=== PATIENT | female | born 2000 | race Caucasian/White ===

== ENCOUNTER 2021-07-15 11:12 | Outpatient (CLI) | payer OTHER ==
[2021-07-15 18:17] LABS: BASOPHILS # (AUTO) 0.1 10^3/uL (0.0-0.1); BASOPHILS % (AUTO) 0.4 %; EOSINOPHILS # (AUTO) 0.1 10^3/uL (0.0-0.7); EOSINOPHILS % (AUTO) 0.9 %; HCT - HEMATOCRIT 34.8 % (37.0-47.0); HGB - HEMOGLOBIN 11.5 g/dL (12.0-16.0); LYMPHOCYTES % (AUTO) 16.9 %; MEAN CORPUSCULAR HEMOGLOBIN 30.9 pg (27.0-31.0); MEAN CORPUSCULAR VOLUME 93.5 fL (81.0-99.0); MEAN PLATELET VOLUME 9.6 fL (7.9-10.8); MONOCYTES # (AUTO) 0.6 10^3/uL (0.0-1.0); MONOCYTES % (AUTO) 5.3 %; NEUTROPHILS % (AUTO) 75.4 %; PLT - PLATELET COUNT 301 10^3/uL (130-450); RED BLOOD COUNT 3.72 10^6/uL (4.20-5.40); RED CELL DISTRIBUTION WIDTH 12.4 % (12.0-15.0)
== END 2021-07-15 11:13 | disposition home or self-care (01) ==
LOC: LAB.N 11:12
PROVIDERS: ATTEND Nurse Practitioner Obstetrics & Gynecology
DX: Z36.9 Encounter for antenatal screening, unspecified (principal)
CPT/HCPCS: 36415; 82950; 85025

== ENCOUNTER 2021-10-01 12:13 | Outpatient (CLI) | payer OTHER ==
[2021-10-01 12:35] LABS: BASOPHILS # (AUTO) 0.1 10^3/uL (0.0-0.1); BASOPHILS % (AUTO) 0.6 %; EOSINOPHILS # (AUTO) 0.2 10^3/uL (0.0-0.7); EOSINOPHILS % (AUTO) 1.3 %; HCT - HEMATOCRIT 33.3 % (37.0-47.0); HGB - HEMOGLOBIN 11.4 g/dL (12.0-16.0); LYMPHOCYTES % (AUTO) 16.7 %; MEAN CORPUSCULAR HEMOGLOBIN 30.4 pg (27.0-31.0); MEAN CORPUSCULAR HGB CONC 34.2 g/dL (32.0-36.0); MEAN CORPUSCULAR VOLUME 88.8 fL (81.0-99.0); MEAN PLATELET VOLUME 9.1 fL (7.9-10.8); MONOCYTES # (AUTO) 0.9 10^3/uL (0.0-1.0); MONOCYTES % (AUTO) 7.2 %; NEUTROPHILS # (AUTO) 8.6 10^3/uL (1.5-6.6); PLT - PLATELET COUNT 253 10^3/uL (130-450); RED BLOOD COUNT 3.75 10^6/uL (4.20-5.40); RED CELL DISTRIBUTION WIDTH 13.5 % (12.0-15.0)
[2021-10-01 12:47] LABS: ALBUMIN/GLOBULIN RATIO 0.8 (1.0-2.2); BILIRUBIN,TOTAL 0.7 mg/dL (0.2-1.0); CALCIUM 9.1 mg/dL (8.5-10.3); CREATININE 0.7 mg/dL (0.4-1.0); POTASSIUM 4.2 mmol/L (3.5-5.0); TOTAL PROTEIN 6.6 g/dL (6.7-8.2)
[2021-10-02 11:09] LABS: CREATININE,URINE 100.4 mg/dL; PROTEIN/CREATININE RATIO,URINE 0.2 (<=0.2)
== END 2021-10-01 12:14 | disposition home or self-care (01) ==
LOC: LAB 12:13
PROVIDERS: ATTEND Nurse Practitioner Obstetrics & Gynecology
DX: R03.0 Elevated blood-pressure reading, without diagnosis of hypertension (principal)
CPT/HCPCS: 36415; 80053; 82043; 82570; 84156; 85025

== ENCOUNTER 2021-10-04 18:23 | Inpatient (IN) | payer OTHER ==
--- NOTE | 2021-10-04 18:27 | HISTORY & PHYSICAL EXAMINATION ---
Admit History - Visit Reason Visit Reason: Other - : 2 Parity: 0 Premature: 0 Ectopic: 0 : 1 Care: [facility] Risk/History: positive: None Complications This : positive: induced HTN Smoking Status: Never smoker - Mother's Labs Mother's Blood Type: positive: A Mother's RH: positive: Positive GBS: positive: Group B Strep Positive Rubella Status: positive: Immune Review of Systems - Constitutional Constitutional: denies: Fatigue, Fever, Chills, Malaise - Eyes Eyes: denies: Blurred vision, Spots in vision, Dipolpia - Cardiovascular Cariovascular: denies: Irregular heart rate, Palpitations, Chest pain, Edema - Respiratory Respiratory: denies: Cough, Wheezing, SOB at rest - Gastrointestinal Gastrointestinal: denies: Constipation, Diarrhea, Nausea, Vomiting - Genitourinary Genitourinary: denies: Dysuria - Integumentary Integumentary: denies: Rash, Pruritis - Neurological Neurological: denies: Headache Physical - Abdominal Exam Contraction Frequency (min/apart): none Uterine Resting Tone: positive: Soft - Monitoring Heart Rate Baseline: 140 Strip Review: positive: Category I - Presentation Presentation: positive: Vertex - Vaginal Exam Membranes: positive: Membranes intact Dilation (in cm): 1 Effacement (%): 50 Station: positive: -3 Cervical Position: positive: Posterior - Speculum Exam Speculum Exam Performed: positive: No Plan for Labor - Plan For Labor I expect patient to be DC'd or transferred within 96 hours.: Yes Plan for Labor: Elizabeth is a 21yo @ 39.4wks gestation by LMP c/w 7.6wk U/S who presents today as directed from her routine office visit for medical induction of labor secondary to her new diagnosis of gestational hypertension. She denies headaches, visual disturbances, RUQ or epigastric pain. She reports +FM and denies vaginal bleeding, leaking or contractions. Upon arrival an SVE was deferred secondary to her recent SVE 1 hour ago which was /-3, posterior and vertex with intact membranes. She had a Mares balloon inserted for cervical ripening at approximately 1730 this evening and it is currently still in place. She has been a patient of [facility] through the duration of her which has remained uncomplicated with the exception of her new diagnosis of gestational hypertension. She is noted to be GBS positive but despite recommendations for treatment she has chosen to decline antibiotics for GBS prophylaxis. She is supported by her Goran. Dating criteria: LMP 12/31/2020 Initial U/S @ 7.6wks gestation c/w LMP dating Serial exams - agree OB Hx: G1: SAB-uncomplicated G2: Current Medications: PNV Allergies: NKDA, gluten intolerance PMHx: Infertility. PCOS (used proverb to stimulate menses, letrozole to conceive) Surgical Hx: Hemangioma removal R eyelid <1yo; [place] teeth removal 2017 Social Hx: Never smoker. No ETOH or IVDA. Goran is [employer] [place]. She is currently not employed. Family Hx: No significant course: A positive, antibody negative Rubella immune; VZV immune Genetic screening - declines Influenza - declined Tdap- declined COVID vaccine - declined FAS WNL. Anterior placenta, no previa. Size c/w dating. 3VC. Glucola - 95 GBS POSITIVE - declines treatment 10/01/2021 CMP WNL; Urine protein creatinine ratio WNL Physical Exam: Normocephalic, atraumatic Heart RRR w/o M/G/R Lungs CTAB Abdomen gravid, soft, contender EFW 3600g SVE 1/50/-3, posterior. Vertex with intact membranes FHR baseline 140s, moderate variability, + accels, no decals No contractions appreciated via tocometry Bilateral LEs trace edema Mood is good. Assessment: 21yo @ 39.4wks gestation by LMP c/w 7.6wk U/S Gestational hypertension GBS POSITIVE - declines treatment despite recommendations and aware/accepting of associated risks to FHR Category I Plan: Admit for medical induction of labor. Initiate misoprostol 50mcg PO q 4 hours for cervical ripening Continuous monitoring Encouraged ambulation and position changes Jacuzzi PRN. Nitrous oxide PRN. Epidural per maternal request. Anticipate .
[2021-10-04] MEDS ORDERED: SODIUM CHLORIDE FLUSH 0.9% 10 ML SYRINGE IVP PRN (18:28)
[2021-10-04] MEDS ORDERED: TRANEXAMIC ACID IN NACL 1,000 MG/100 ML BAG IV PRN (18:28)
[2021-10-04] MEDS ORDERED: lidocaine 1% 20 ML MDV ID PRN (18:28)
[2021-10-04] MEDS ORDERED: OXYTOCIN 10 UNIT/ML VIAL IM PRN (18:28)
[2021-10-04] MEDS ORDERED: AMPICILLIN 2 GM in SODIUM CHLORIDE 0.9% MINIBAG 100 ML IV ONE (18:28)
[2021-10-04] MEDS ORDERED: ONDANSETRON 4 MG/2 ML VIAL IVP PRN (18:28)
[2021-10-04] MEDS ORDERED: CARBOPROST TROMETHAMINE 250 MCG/ML AMP IM PRN (18:28)
[2021-10-04] MEDS ORDERED: METHYLERGONOVINE 0.2 MG/ML VIAL IM PRN (18:28)
[2021-10-04 19:06] LABS: BASOPHILS # (AUTO) 0.1 10^3/uL (0.0-0.1); BASOPHILS % (AUTO) 0.4 %; EOSINOPHILS # (AUTO) 0.2 10^3/uL (0.0-0.7); EOSINOPHILS % (AUTO) 1.2 %; HCT - HEMATOCRIT 36.1 % (37.0-47.0); HGB - HEMOGLOBIN 12.1 g/dL (12.0-16.0); LYMPHOCYTES # (AUTO) 2.4 10^3/uL (1.5-3.5); LYMPHOCYTES % (AUTO) 16.5 %; MEAN CORPUSCULAR HEMOGLOBIN 29.3 pg (27.0-31.0); MEAN CORPUSCULAR HGB CONC 33.5 g/dL (32.0-36.0); MEAN CORPUSCULAR VOLUME 87.4 fL (81.0-99.0); MEAN PLATELET VOLUME 9.4 fL (7.9-10.8); MONOCYTES % (AUTO) 6.9 %; NEUTROPHILS # (AUTO) 10.7 10^3/uL (1.5-6.6); NEUTROPHILS % (AUTO) 73.4 %; PLT - PLATELET COUNT 298 10^3/uL (130-450); RED BLOOD COUNT 4.13 10^6/uL (4.20-5.40); RED CELL DISTRIBUTION WIDTH 13.4 % (12.0-15.0); WHITE BLOOD COUNT 14.6 x10^3/uL (4.8-10.8)
[2021-10-04 19:20] LABS: ALBUMIN 3.3 g/dL (3.2-5.5); ALBUMIN/GLOBULIN RATIO 0.8 (1.0-2.2); BILIRUBIN,TOTAL 0.7 mg/dL (0.2-1.0); CALCIUM 9.8 mg/dL (8.5-10.3); CREATININE 0.7 mg/dL (0.4-1.0); POTASSIUM 4.1 mmol/L (3.5-5.0); TOTAL PROTEIN 7.2 g/dL (6.7-8.2)
[2021-10-04] MEDS ORDERED: NIFEdipine 10 MG CAPSULE PO PRN (20:39)
[2021-10-04] MEDS ORDERED: LABETALOL 20 MG/4 ML SYRINGE IVP PRN ×3 (20:39)
[2021-10-04] MEDS ORDERED: hydrALAZINE INJ 20 MG/ML VIAL IVP PRN ×2 (20:39)
[2021-10-04] MEDS: LACTATED RINGERS 1,000 ML IV SCH (20:50)
[2021-10-04 21:47] LABS: CREATININE,URINE 42.4 mg/dL; PROTEIN/CREATININE RATIO,URINE 0.2 (<=0.2)
[2021-10-04] MEDS: miSOPROStoL 100 MCG TABLET BC SCH (21:47)
[2021-10-04] MEDS: ZOLPIDEM 5 MG TABLET PO PRN (22:56)
[2021-10-04] MEDS: AMPICILLIN 1 GM in SODIUM CHLORIDE 0.9% MINIBAG 100 ML IV SCH (23:00)
[2021-10-05] MEDS ORDERED: SODIUM CHLORIDE FLUSH 0.9% 10 ML SYRINGE IVP SCH (01:00)
[2021-10-05] MEDS ORDERED: ZOLPIDEM 5 MG TABLET PO PRN (01:07)
[2021-10-05] MEDS: ZOLPIDEM 5 MG TABLET PO PRN (01:15)
[2021-10-05] MEDS: miSOPROStoL 100 MCG TABLET BC SCH ×6 (01:55→20:23)
[2021-10-05] MEDS: AMPICILLIN 1 GM in SODIUM CHLORIDE 0.9% MINIBAG 100 ML IV SCH ×4 (03:29→20:23)
[2021-10-05] MEDS: LACTATED RINGERS 1,000 ML IV SCH ×3 (06:12→20:09)
--- NOTE | 2021-10-05 10:07 | PROVIDER PROGRESS NOTE ---
Labor Progress Note - Uterine Monitoring Uterine Monitoring Mode: positive: External toco Contraction Frequency (min/apart): 2-3 Contraction Intensity: positive: Moderate Uterine Resting Tone: positive: Soft - Monitoring Monitor Mode: positive: External ultrasound Heart Rate Baseline: 140 Heart Rate Variability: positive: Moderate (6-25 bmp) Accelerations: positive: Present, 15x15 Decelerations: positive: None Strip Review: positive: Category I - Vaginal Exam Dilation (in cm): 4 Effacement (%): 90 Station: -1 Cervical Position: Midposition - Labor Progress Note Labor Progress Note/Additional Text: S: Pt bouncing on the labor ball at the bedside and breathing through contractio ns. She states they are tolerable at this time but she has noted an increase in intensity throughout the night. She feels like she is in control of her breathing at this time. She reports feeling tired from lack of sleep despite 10mg ambien but overall denies concerns. She denies STRATTON, visual disturbances, RUQ or epigastric pain. She is supported by her mom and her at the bedside. O: FHR baseline 140s, moderate variability, + accels, no decels Contractions palpate moderate every 2-3 minutes with soft resting tone SVE 4/90/-1, midposition, soft. Vertex Intact membranes BP remains mildly elevated (140s/80s) Mares cervical ripening balloon spontaneously expelled at 0400 this morning. A: 21yo @ 39.5wks gestation Gestational hypertension GBS positive FHR Category I P: Continuous monitoring Encouraged ambulation and position changes Jacuzzi PRN. Nitrous oxide PRN. Epidural per maternal request. Consider AROM with next SVE if unchanged. Continue expectant management at this time. Anticipate . Pt verbalized understanding and agrees to above plan. She denies further questions or concerns at this time.
[2021-10-05] MEDS ORDERED: ROPIVACAINE 0.2% 200 MG/100 ML BAG EP ONE (12:15)
[2021-10-05] MEDS ORDERED: diphenhydrAMINE INJ 50 MG/ML VIAL IVP PRN (12:48)
[2021-10-05] MEDS ORDERED: METOCLOPRAMIDE 10 MG/2 ML VIAL IVP PRN (12:48)
[2021-10-05] MEDS ORDERED: NALBUPHINE 10 MG/ML AMP IVP PRN (12:48)
[2021-10-05] MEDS ORDERED: NALOXONE 0.4 MG/ML VIAL IVP PRN (12:48)
[2021-10-05] MEDS ORDERED: ONDANSETRON 4 MG/2 ML VIAL IVP PRN (12:48)
[2021-10-05] MEDS ORDERED: ROPIVACAINE 0.2% 200 MG/100 ML BAG EP PRN (12:48)
[2021-10-05] MEDS ORDERED: ePHEDrine 50 MG/ML VIAL IVP PRN (12:48)
--- NOTE | 2021-10-05 12:52 | ANESTHESIA ---
Pre-Anesthesia VS, & Labs - Diagnosis labor induction - Procedure labor epidural Vital Signs: Temp Pulse Resp BP Pulse Ox 36.9 C 82 18 132/82 H 100 10/05/21 04:00 10/05/21 07:00 10/05/21 04:00 10/05/21 07:00 10/05/21 07:00 Height: 5 ft 6 in Weight (kg): 94.801 kg Body Mass Index: 33.7 BMI Classification: Obese - NPO >8 hours - Is Patient ?: Yes - Lab Results Current Lab Results: Laboratory Tests 10/04/21 18:50: Blood Type A POSITIVE, Antibody Screen NEGATIVE 10/04/21 18:50: Sodium 136, Potassium 4.1, Chloride 103, Carbon Dioxide 20 L, Anion Gap 13.0, BUN 7, Creatinine 0.7, Estimated GFR (MDRD) 104, Glucose 96, Calcium 9.8, Total Bilirubin 0.7, AST 18, ALT 12, Alkaline Phosphatase 150 H, Total Protein 7.2, Albumin 3.3, Globulin 3.9, Albumin/Globulin Ratio 0.8 L 10/04/21 18:50: WBC 14.6 H, RBC 4.13 L, Hgb 12.1, Hct 36.1 L, MCV 87.4, MCH 29.3, MCHC 33.5, RDW 13.4, Plt Count 298, MPV 9.4, Neut # (Auto) 10.7 H, Lymph # (Auto) 2.4, [place] # (Auto) 1.0, Eos # (Auto) 0.2, Baso # (Auto) 0.1, Absolute Nucleated RBC 0.00, Nucleated RBC % 0.0 Fish Bones: 10/04/21 18:50 10/04/21 18:50 Home Medications and Allergies Home Medications: Ambulatory Orders Vit No.180/Iron/Folic [ Plus Tablet] 1 each PO DAILY 10/04/21 Active Medications Carboprost Tromethamine (Carboprost Tromethamine 250 Mcg/Ml Amp) 250 mcg IM Q15M PRN PRN Reason: Step 4: Hemorrhage protocol Stop: 10/09/21 18:28 Hydralazine HCl (Hydralazine Inj 20 Mg/Ml Vial) 10 mg IVP .ONCE PRN PRN Reason: SBP> or= 160 OR DBP> or= 110 Hydralazine HCl (Hydralazine Inj 20 Mg/Ml Vial) 5 - 10 mg IVP Q20M PRN; Protocol PRN Reason: SBP> or= 160 OR DBP> or= 110 Oxytocin/Sodium Chloride (Pitocin/Sodium Chloride) 500 mls @ 999 mls/hr IV PRN PRN; Protocol PRN Reason: POST- HEMORR PREVENTION Stop: 10/09/21 18:28 Tranexamic Acid (Tranexamic 1,000 Mg/100ml-Nacl) 1,000 mg in 100 mls @ 600 mls/hr IV .ONCE PRN PRN Reason: EBL >1200mL and within 3hr Stop: 10/09/21 18:28 Ampicillin Sodium 1 gm/ Sodium (Chloride) 100 mls @ 200 mls/hr IV Q4H SUSAN Last Admin: 10/05/21 11:54 Dose: Not Given Lactated Ringer's (Lr) 1,000 mls @ 100 mls/hr IV .Q10H SUSAN Last Infusion: 10/05/21 11:50 Dose: 125 mls/hr Labetalol HCl (Labetalol 20 Mg/4 Ml Syringe) 20 mg IVP .ONCE PRN PRN Reason: SBP> or= 160 OR DBP> or= 110 Labetalol HCl (Labetalol 20 Mg/4 Ml Syringe) 20 - 80 mg IVP Q10M PRN; Protocol PRN Reason: SBP> or= 160 OR DBP> or= 110 Labetalol HCl (Labetalol 20 Mg/4 Ml Syringe) 20 - 40 mg IVP Q10M PRN; Protocol PRN Reason: SBP> or= 160 OR DBP> or= 110 Lidocaine HCl (Lidocaine 1% 20 Ml Mdv) 20 ml ID .ONCE PRN PRN Reason: PERINEAL REPAIR Stop: 10/09/21 18:28 Methylergonovine Maleate (Methylergonovine 0.2 Mg/Ml Vial) 0.2 mg IM .ONCE PRN PRN Reason: Step 2: Hemorrhage protocol Stop: 10/09/21 18:28 Misoprostol (Misoprostol 100 Mcg Tablet) 50 mcg BC Q4H SUSAN Last Admin: 10/05/21 08:12 Dose: Not Given Nifedipine (Nifedipine 10 Mg Capsule) 10 - 20 mg PO Q20M PRN; Protocol PRN Reason: SBP> or= 160 OR DBP> or= 110 Ondansetron HCl (Ondansetron 4 Mg/2 Ml Vial) 4 mg IVP Q4HR PRN PRN Reason: Nausea / Vomiting Oxytocin (Oxytocin 10 Unit/Ml Vial) 10 unit IM .ONCE PRN PRN Reason: Step one: If no IV access Stop: 10/09/21 18:28 Sodium Chloride (Sodium Chloride Flush 0.9% 10 Ml Syringe) 10 ml IVP 010 0,0900,1700 SUSAN Last Admin: 10/04/21 19:30 Dose: 10 ml Sodium Chloride (Sodium Chloride Flush 0.9% 10 Ml Syringe) 10 ml IVP PRN PRN PRN Reason: NEEDED PER PROVIDER ORDERS Last Admin: 10/04/21 21:26 Dose: 10 ml Zolpidem Tartrate (Zolpidem 5 Mg Tablet) 5 mg PO QPM PRN PRN Reason: Insomnia Last Admin: 10/05/21 01:15 Dose: 5 mg Zolpidem Tartrate (Zolpidem 5 Mg Tablet) 5 mg PO QPM PRN PRN Reason: Insomnia Vit No.180/Iron/Folic [ Plus Tablet] 1 each PO DAILY 10/04/21 Allergies/Adverse Reactions: Allergies Allergy/AdvReac Type Severity Reaction Status Date / Time No Known Drug Allergies Allergy Verified 10/04/21 20:23 Anes History & Medical History - Anesthetic History Anesthesia Complications: reports: No previous complications - Medical History Cardiovascular: reports: None Pulmonary: reports: None Smoking Status: Never smoker History of Cancer?: No - Obstetrical History : 2 Parity: 0 Events: reports: None Complications: reports: induced HTN Exam General: Alert, Oriented x3, Cooperative, Mild distress Dental: WNL Mouth Opening: Greater than 4 Fingerbreadths Neck Mobility: Normal Mallampati classification: II Thyromental Distance: greater than 6 cm Plan Anesthesia Type: Epidural Consent for Procedure(s) Verified and Reviewed: Yes Code Status: Attempt Resuscitation ASA classification: 2-Mild systemic disease Is this case an emergency?: No
--- NOTE | 2021-10-05 13:32 | PROVIDER PROGRESS NOTE ---
Labor Progress Note - Uterine Monitoring Uterine Monitoring Mode: positive: External toco Contraction Frequency (min/apart): 2-3 Contraction Intensity: positive: Moderate to strong Uterine Resting Tone: positive: Soft - Monitoring Monitor Mode: positive: External ultrasound Heart Rate Baseline: 135 Heart Rate Variability: positive: Moderate (6-25 bmp) Accelerations: positive: Present, 15x15 Decelerations: positive: None Strip Review: positive: Category I - Vaginal Exam Dilation (in cm): 6 Effacement (%): 100 Station: 1 Cervical Position: Anterior - Labor Progress Note Labor Progress Note/Additional Text: S: Pt comfortable right side lying with epidural. She is feeling good and hoping to be able to get a little bit of sleep prior to baby's arrival. She is coping well at this time and both her and her mother are supportive at the bedside. She denies STRATTON, visual disturbances, RUQ or epigastric pain. O: FHR baseline 135, moderate variability, + accels, no decels Contractions palpate moderate to strong every 2-3 minutes with soft resting tone SVE 6/100/+1, anterior. Vertex. AROM moderate amount of clear fluid A: 21yo @ 39.5wks gestation Gestational hypertension GBS positive - continues to decline treatment FHR Category I P: Continuous monitoring. Maintain epidural for pain management Encouraged rotation in bed with peanut ball while also promoting rest. Anticipate .
[2021-10-05] MEDS ORDERED: fentaNYL 100 MCG/2 ML VIAL ONE (15:08)
[2021-10-05] MEDS ORDERED: LIDOCAINE-PF 2% 10 ML AMP SUBQ ONE (15:08)
[2021-10-05] MEDS ORDERED: HYDROCORTISONE 1% CREAM 28 GM TUBE PR PRN (19:00)
[2021-10-05] MEDS ORDERED: WITCH HAZEL/GLYCERIN 1 PAD TOP PRN (19:00)
--- NOTE | 2021-10-05 19:17 | DELIVERY NOTE ---
Delivery Note - Labor Labor: positive: Augmented by ARM - Infant Delivery Method Delivery Method: positive: Spontaneous vaginal delivery - Cervical Ripening Method Cervical Ripening Method: positive: Balloon device, Misoprostil - Presentation Presentation: positive: Vertex, DALE - left occiput anterior - Nuchal Cord Nuchal Cord: positive: None - Amniotic Fluid Description Amniotic Fluid Description: positive: Clear - Episiotomy Type Episiotomy Type: positive: None - Laceration Laceration: positive: 1st degree, Labial, Vaginal - Suture Suture Type: positive: Vicryl Suture Size: positive: 2-0, 4-0 - Delivery Outcome Delivery Outcome: positive: Livebirth - [place]: positive: Placed in direct skin contact with mother, Stimulated, Warmed, [place] used [place] sex: positive: Female - Cord Cord: positive: 3 vessels - Placenta Placenta: positive: Intact, Spontaneous - Estimated Blood Loss Estimated Blood Loss (in cc): 500 - Post Delivery Events Post Delivery Events: positive: No post delivery events - Delivery Comments (Free Text/Narrative) Delivery Comments (Free Text/Narrative): Labor: This 21yo @ 39.5wks gestation presented on 10/04/2021 for medical induction of labor secondary to gestational hypertension. Cervix was 1/50/-3, posterior and vertex. FHR pattern demonstrated Category I pattern throughout labor. She had a layne cervical ripening balloon placed and it was spontaneously expelled at 0400 on 10/05/2021. She received 2 doses of 50mcg BC misoprostol for cervical ripening. Epidural placed upon maternal request. AROM occurred at 1321 and was noted to be a moderate amount of clear fluid. Pt progressed to c/c/+1 at 1636 with onset of active pushing at 1658. : Normal of viable female on 10/05/2021 @ 1800. No nuchal. The was placed on maternal abdomen, stimulated, dried, and placed skin to skin. Apgars were 8/9 at 1 and 5 minutes respectively. Pt declined active management of the third stage. The umbilical cord was allowed to stop pulsating and which time it was doubly clamped by CNM and cut by FOB. Cord blood was obtained. 3VC. Fundal massage and gentle cord traction applied. Placenta delivered spontaneously and intact at 1810. EBL 500mL. Fourth stage: Uterine fundus firm and there is no excessive bleeding. The perineum, vagina, and cervix were inspected and noted to have a 1st degree vaginal laceration which was repaired using a 2-[address]-1 needle and she was also noted to have a minor 1st degree right labial laceration which was repaired using a 4-0 vicryl on an SH needle, both repairs were performed in standard fashion and under sterile conditions. Vaginal examination following repair was performed. Tissues well approximated. initiated. Family bonding well. Both mother and baby were left in stable conditions.
[2021-10-05] MEDS: OXYTOCIN/SODIUM CHLORIDE 500 ML IV PRN ×2 (19:50→21:07)
[2021-10-05] MEDS: ACETAMINOPHEN 500 MG TABLET PO SCH (20:08)
[2021-10-05] MEDS: IBUPROFEN 800 MG TABLET PO SCH (20:08)
[2021-10-05] MEDS ORDERED: HYDROcod/ACETAM 5/325 MG TABLET PO PRN (20:50)
[2021-10-05] MEDS ORDERED: OXYTOCIN 10 UNIT/ML VIAL IVP ONE (20:51)
[2021-10-05] MEDS: DOCUSATE SODIUM 100 MG CAPSULE PO SCH (21:07)
[2021-10-06] MEDS: IBUPROFEN 800 MG TABLET PO SCH ×2 (01:36→09:07)
[2021-10-06] MEDS: ACETAMINOPHEN 500 MG TABLET PO SCH ×2 (03:11→11:51)
[2021-10-06] MEDS: DOCUSATE SODIUM 100 MG CAPSULE PO SCH (09:07)
--- NOTE | 2021-10-06 09:45 | Discharge Plan ---
Discharge Plan Problem Reviewed?: Yes Disposition: Home, Self Care Condition: Good Diet: Regular Activity Restrictions: No Restrictions Shower Restrictions: No Driving Restrictions: No Weight Bearing: Full Weight No Smoking: If you smoke, Please STOP! Call for help. Follow-up with: Katheryn Irwin CNM, ARNP [Provider Admit Priv/Credential] -
--- NOTE | 2021-10-06 10:04 | DISCHARGE SUMMARY ---
Discharge Summary Condition at Discharge: Good Discharge Disposition: 01 Home, Self Care - HOSPITAL COURSE Hospital Course: Date of Admission: 10/04/2021 Date of Discharge: 10/06/2021 Diagnosis on Admission: 1. 21yo @ 39.4wks gestation 2. Gestational hypertension 3. GBS positive 4. FHR Category I Diagnosis on Discharge: 1. 21yo PPD#1 s/p TSVD viable female 2. 1st degree perineal laceration - intact 3. Gestational hypertension 4. Normal recovery Brief history: [facility] who presented on 10/04/2021 for medical induction of labor secondary to gestational hypertension. Her blood pressures were noted to be mildly elevated and remained only mildly elevated with no symptoms of preeclamspia and normal labs through the duration of her labor and course. Cervix was 1/50/-2, posterior and vertex with intact membranes. She presented with a layne cervical ripening balloon with 60cc intrauterine balloon upon arrival as it was placed in the office prior to her arrival. She was noted to contract every 2-3 minutes with soft resting tone. FHR pattern demonstrated a category I pattern throughout labor. She received 2 doses of 50mc BC misoprostol and cervical ripening balloon was spontaneously expelled. Epidural placed per maternal request. AROM occurred for labor augmentation and was noted to be a moderate amount of clear fluid. SHe was noted to be GBS positive and declined antibiotics for prophylaxis despite recommendations and she was counseled extensively on associated risk of GBS infection to her including . She progressed to spontaneously deliver a viable female infant on 10/05/2021 @ 1800. Apgars were 8/9 at 1 and 5 minutes respectively. EBL 500mL initially with an additional 104mL and was accompanied by lightheadedness. She had initially declined active management of the third stage. Following the increased bleeding she agreed to pitocin IV which controlled her bleeding. She has been doing well in her course. She is ambulating and tolerating a regular diet. She is urinating without difficulty and her lochia is normal. Her pain is well controlled with oral medications. She is without difficulty and bonding well with her baby. She will be discharged home today on day #1 with instructions to continue taking her vitamin while and to continue taking ibuprofen and tylenol over t he counter as needed for pain management. She intends to follow up with myself at [facility] in 1 week for routine visit or sooner if needed. She has been given precautions to call if she has any worsening fevers, chills, abdominal pain, increased vaginal bleeding or foul smelling vaginal lochia. Physical Exam: Normocephalic, atraumatic. Heart RRR w/o M/G/R, lungs CTAB, abdomen soft and nontender with fundus firm at U, perineum intact, light lochia rubra, bilateral LE's trace edema. Mood is good. - ALLERGIES Allergies/Adverse Reactions: Allergies Allergy/AdvReac Type Severity Reaction Status Date / Time No Known Drug Allergies Allergy Verified 10/04/21 20:23 - MEDICATIONS Home Medications: Ambulatory Orders Medication Instructions Recorded Confirmed Vit No.180/Iron/Folic 1 each PO DAILY 10/04/21 10/04/21 [ Plus Tablet] - LABS Result Diagrams: 10/04/21 18:50 10/04/21 18:50
[2021-10-06 12:56] VITALS: BP 135/81
--- NOTE | 2021-10-06 12:57 | Labor Flowsheet ---
Labor Flowsheet Datetime Report Generated by CPN: 10/06/2021 12:57 Datetime: 10/06/2021 12:38 VITAL SIGNS NBP Sys/Natalie/Mean (mmHg): 135 : 81 : 93 Pulse: 115 Datetime: 10/06/2021 03:15 SpO2 (%): 100 Datetime: 10/05/2021 20:40 Stage of : Recovery Datetime: 10/05/2021 19:15 Respirations: 12 Temperature (C): 37.0 Temperature Route: Oral PAIN Pain Scale: 2 Pain Presence: Constant Pain Type: Pressure; Ache Pain Location: Abdomen Datetime: 10/05/2021 18:58 PATIENT CARE IV/Blood Work: IV Bolus Started Patient Care Comments: 500ml Datetime: 10/05/2021 18:55 Patient Position/Activity: HOB Lowered Datetime: 10/05/2021 18:10 Stage 2 Comments: placenta Datetime: 10/05/2021 18:09 Membranes Ruptured Date/Time: 10/05/2021 13:21 Datetime: 10/05/2021 17:30 UTERINE ACTIVITY Monitor Mode: External Frequency (min): 2-3 Quality: Moderate Duration (sec): 60-90 Pattern: Normal: <= 5 Contractions in 10 Minutes Resting Tone (Palpate): Relaxed ASSESSMENT A Monitor Mode: External US FHR Baseline Rate : 120 Variability: Moderate 6-25 bpm Accelerations: 15X15 Decelerations: None Category: Category I Datetime: 10/05/2021 17:00 LaborFlag: Labor Datetime: 10/05/2021 16:58 STAGE 2 Pushing: Coached on Pushing Pushing Position: Pushing with Contractions Pushing Progress: Descent with Pushing Datetime: 10/05/2021 16:36 VAGINAL EXAM Dilatation (cm): 10.0 Effacement (%): 100 Station: 2 Exam by: H. Meriden RN COMMUNICATION Communication: Call/Page Placed to Provider Provider Notified (Name): Katheryn Dc Communication Comments: Notified provider of SVE. Will come to bedside. Datetime: 10/05/2021 16:30 Monitor Interventions for UA: [place] Adjusted Contraction Comments: RN @ bedside for toco adjustments, ctx not tracing well. Datetime: 10/05/2021 14:57 Epidural Procedure Other: Single Dose Anesthesia Comments: SAMPLE CHECKER Aube @ bedside for epidural bolus Datetime: 10/05/2021 14:27 Cervix, Consistency: Soft Cervix, Position: Midposition Datetime: 10/05/2021 13:27 I/O Interventions: Mares Cath Inserted Datetime: 10/05/2021 13:21 Membrane Status: Ruptured Membranes Rupture Method: Artificial Amniotic Fluid Color: Bloody Amniotic Fluid Amount: Moderate Amniotic Fluid Odor: Normal Datetime: 10/05/2021 13:09 Monitor Interventions for FHR: Ultrasound Adjusted Datetime: 10/05/2021 13:00 Anesthesia Level Check: T10- Umbilicus Datetime: 10/05/2021 12:19 Epidural Procedure: Test Dose Datetime: 10/05/2021 12:07 Comments: switched to wired monitors Datetime: 10/05/2021 12:03 PROCEDURE TIME OUT Procedure Verify: Correct Patient Identity; Accurate Procedure Consent Form; Agreement on Procedure to be Done; Correct Patient Position ANESTHESIA Anesthesia Plans: Epidural Epidural Positioning: Sitting Datetime: 10/05/2021 11:31 Pain Coping: Requesting Pain Medication or Epidural Pain Assessment Comments: Pt requesting epidural Datetime: 10/05/2021 11:00 Comfort Measures: Breathing/Relaxation; Family Support Datetime: 10/05/2021 07:00 Oxygen Method: Room Air Datetime: 10/05/2021 05:59 Actions for Decelerations: Side to Side Datetime: 10/05/2021 04:00 FHR Baseline Changes: No Baseline Change Datetime: 10/05/2021 01:55 MEDICATIONS Cervical Ripening Agents: Cytotec @ (Annotations: 50 mcg) Datetime: 10/05/2021 01:15 Medication Comments: Ambien 5mg
== END 2021-10-06 12:56 | disposition home or self-care (01) | DRG 807 ==
LOC: WFO 18:23 → FBP 18:24 → WFO 18:27 → FBP 18:28
PROVIDERS: ADMIT Nurse Practitioner Obstetrics & Gynecology; ATTEND Nurse Practitioner Obstetrics & Gynecology
PROC: 10E0XZZ Delivery of Products of Conception, External Approach (ICD-10-PCS; principal; 2021-10-05)
PROC: 0HQ9XZZ Repair Perineum Skin, External Approach (ICD-10-PCS; 2021-10-05)
PROC: 3E0DXGC Introduction of Other Therapeutic Substance into Mouth and Pharynx, External Approach (ICD-10-PCS; 2021-10-05)
PROC: 10907ZC Drainage of Amniotic Fluid, Therapeutic from Products of Conception, Via Natural or Artificial Opening (ICD-10-PCS; 2021-10-05)
DX: O13.4 Gestational [pregnancy-induced] hypertension without significant proteinuria, complicating childbirth (principal); Z37.0 Single live birth; Z3A.39 39 weeks gestation of pregnancy; O99.824 Streptococcus B carrier state complicating childbirth; O70.0 First degree perineal laceration during delivery; O72.1 Other immediate postpartum hemorrhage; Z53.20 Procedure and treatment not carried out because of patient's decision for unspecified reasons
CPT/HCPCS: 36415; 80053; 82570; 84156; 85025; 86850; 86900; 86901; A9270; J7120

== ENCOUNTER 2023-03-09 12:25 | Outpatient (CLI) | payer OTHER ==
[2023-03-09 12:54] LABS: BASOPHILS # (AUTO) 0.1 10^3/uL (0.0-0.1); BASOPHILS % (AUTO) 0.7 %; EOSINOPHILS # (AUTO) 0.5 10^3/uL (0.0-0.7); EOSINOPHILS % (AUTO) 4.4 %; HCT - HEMATOCRIT 39.1 % (37.0-47.0); HGB - HEMOGLOBIN 13.3 g/dL (12.0-16.0); LYMPHOCYTES # (AUTO) 2.4 10^3/uL (1.5-3.5); LYMPHOCYTES % (AUTO) 19.7 %; MEAN CORPUSCULAR HEMOGLOBIN 30.2 pg (27.0-31.0); MEAN CORPUSCULAR VOLUME 88.7 fL (81.0-99.0); MEAN PLATELET VOLUME 9.3 fL (7.9-10.8); MONOCYTES # (AUTO) 0.6 10^3/uL (0.0-1.0); MONOCYTES % (AUTO) 5.1 %; NEUTROPHILS # (AUTO) 8.3 10^3/uL (1.5-6.6); NEUTROPHILS % (AUTO) 69.5 %; PLT - PLATELET COUNT 302 10^3/uL (130-450); RED BLOOD COUNT 4.41 10^6/uL (4.20-5.40); RED CELL DISTRIBUTION WIDTH 12.7 % (12.0-15.0)
[2023-03-09 13:23] LABS: ESTIMATED AVERAGE GLUCOSE 97 mg/dL (70-100)
[2023-03-09 13:25] LABS: THYROID STIMULATING HORMONE 1.71 uIU/mL (0.34-5.60)
[2023-03-10 06:10] LABS: RPR Non Reactive (Non Reactive)
[2023-03-10 07:09] LABS: HBsAG SCREEN Negative (Negative)
[2023-03-10 08:10] LABS: HIV SCREEN 4TH GENERATION Non Reactive (Non Reactive)
[2023-03-10 09:09] LABS: HCV AB Non Reactive (Non Reactive); VARICELLA-ZOSTER AB IGG 272 index (Immune >165)
== END 2023-03-09 12:26 | disposition home or self-care (01) ==
LOC: LAB 12:25
PROVIDERS: ATTEND Nurse Practitioner Obstetrics & Gynecology
DX: Z36.89 Encounter for other specified antenatal screening (principal)
CPT/HCPCS: 36415; 83036; 84439; 84443; 85025; 86592; 86762; 86787; 86803; 86850; 86900; 86901; 87340; 87389

== ENCOUNTER 2023-04-30 16:36 | Outpatient (CLI) | payer OTHER ==
--- NOTE | 2023-05-02 15:23 | Ultrasound Report ---
PROCEDURE: OB Anatomy Scan INDICATIONS: SUPERVISION OF OUTSIDE/PRIOR DATING DATA: Last menstrual period (LMP): Unknown. LMP-based estimated date of delivery (AMINAH): Unknown. First dating scan (date and location): 02/11/2023. Estimated date of delivery (AMINAH) from first dating scan: 09/15/2023. The below data below was generated using the ultrasound AMINAH of 09/15/2023 TECHNIQUE: Real-time scanning was performed of the fetus, with image documentation and biometric measurements. COMPARISON: None. FINDINGS: General: A single living intrauterine gestation is present. Presentation: Breech Placenta: Placental position is anterior, without previa. Amniotic fluid index: 18 cm, within normal limits for gestational age. Largest pocket 5.5 cm heart rate: 150 beats per minute. Maternal cervical canal: 5.3 cm long; normal length is 2.5 cm or more. biometrics: Biparietal diameter: 4.9 cm 20 weeks 6 days 72nd percentile Head circumference: 18.3 cm 20 weeks 5 days 60th percentile Abdominal circumference: 15.5 cm 20 weeks 5 days 58th percentile Femur length: 3.3 cm 20 weeks 2 days 48th percentile Estimated gestational age from initial scan: 20 weeks 2 days Composite gestational age from present scan: 20 weeks 3 days Estimated weight and percentile: 359 g 59th percentile Measurement variability in biometric dating: +/- 10 days from 12-20 weeks gestation, +/- 2 weeks from 20-30 weeks gestation, +/- 3 weeks at 30 weeks gestation or later. Anatomic survey: Neuro: Cord plexus cyst is present measuring 8 mm. Nuchal skin fold: Normal at less than 6 mm between 14 and 20 weeks gestational age. Face: Nose and lips, are not well seen. Spine: Not well seen. Heart: 4-chambered heart is present, with normal ventricular outflow tracts. Diaphragm: Diaphragm is intact. Stomach: Left-sided stomach is present. Kidneys: No hydronephrosis. Normal is less than 5 mm in 2nd trimester, less than 7 mm in 3rd trimester. Cord: 3 vessel cord has orthotopic insertion. Bladder: Normal in size. Extremities: All 4 extremities are visualized. IMPRESSION: Single live intrauterine single gestational age today of 20 weeks 3 days. Choroid plexus cyst is present. This is overall nonspecific. However, recommend correlation to patien t history and any appropriate laboratory Artifact markers. Interval follow-up is recommended. Incomplete visualization of nose/lips as well as spine. Follow-up imaging is recommended for addition al evaluation. Reviewed by: Nelida Lugo MD on 05/02/2023 3:21 PM PST Approved by: Nelida Lugo MD on 05/02/2023 3:21 PM PST Station ID: [id number]
== END 2023-04-30 16:37 | disposition home or self-care (01) ==
LOC: DI 16:36
PROVIDERS: ATTEND Nurse Practitioner Obstetrics & Gynecology
DX: Z36.89 Encounter for other specified antenatal screening (principal); O34.82 Maternal care for other abnormalities of pelvic organs, second trimester; N94.89 Other specified conditions associated with female genital organs and menstrual cycle; Z3A.20 20 weeks gestation of pregnancy